=== PATIENT | female | born 1980 | race Two or more races ===

== ENCOUNTER 2024-10-23 13:42 | Emergency (ER) | payer MEDICAID ==
[~2024-10-23] VITALS: Ht 172.7 cm; Wt 59.0 kg
[2024-10-23 14:30] LABS: BASOPHILS % (AUTO) 0.3 % (0.0-2.0); EOSINOPHILS % (AUTO) 0.4 % (0.0-6.0); HEMATOCRIT 40 % (33-45); HEMOGLOBIN 13.4 g/dL (11.5-14.8); LYMPHOCYTES # (AUTO) 1.5 K/uL (0.8-4.8); LYMPHOCYTES % (AUTO) 20.1 % (20.0-44.0); MEAN CORPUSCULAR HEMOGLOBIN 31 PG (26.0-33.0); MEAN CORPUSCULAR HGB CONC 34 g/dl (31.0-36.0); MEAN CORPUSCULAR VOLUME 91 fL (82-100); MONOCYTES # (AUTO) 0.6 K/uL (0.1-1.30); MONOCYTES % (AUTO) 7.9 % (2.0-12.0); NEUTROPHILS # (AUTO) 5.3 K/uL (1.8-8.9); NEUTROPHILS % (AUTO) 71.3 % (43.0-81.0); PLATELET COUNT (AUTO) 259 K/uL (150-450); RED BLOOD CELL COUNT(AUTO) 4.35 MIL/uL (4.0-5.2); RED CELL DISTRIBUTION WIDTH 13.6 % (11.5-15.0); WHITE BLOOD COUNT (AUTO) 7.4 K/uL (4.3-11.0)
[2024-10-23 14:41] LABS: CALCIUM, SERUM 8.9 mg/dL (8.5-10.1); CREATININE 0.9 mg/dL (0.6-1.3); POTASSIUM 4.1 mmol/L (3.5-5.1)
[2024-10-23] MEDS ORDERED: HYDR28.32 TP (14:57)
[2024-10-23] MEDS ORDERED: VALA100026 PO (14:57)
[2024-10-23 15:01] LABS: ALBUMIN 3.7 g/dL (3.4-5.0); BILIRUBIN,DIRECT 0.1 mg/dL (0.0-0.2); BILIRUBIN,TOTAL 0.4 mg/dL (0.2-1.0); TOTAL PROTEIN, SERUM 6.9 g/dL (6.4-8.2)
[2024-10-23 15:07] VITALS: BP 126/82; TEMP 98.9; O2SAT 98
== END 2024-10-23 15:08 | disposition home or self-care (01) ==
LOC: ER 13:50
DX: R21 Rash and other nonspecific skin eruption (principal); Z79.624 Long term (current) use of inhibitors of nucleotide synthesis
CPT/HCPCS: 36415; 80048-TC; 80076-TC; 83690-TC; 85025-TC